=== PATIENT | male | born 1970 | race African-American/Black ===

== ENCOUNTER 2019-09-12 08:36 | Emergency (ER) | payer SELFPAY ==
[~2019-09-12] VITALS: Ht 188 cm; Wt 93.6 kg
[~2019-09-12 08:36] MED LIST: HYDROCODON-ACE1 EAC7 PO; HYDROCODONE-APA1 TAB PO; VOLTAREN100 GM TP; VOLTAREN25 MG PO
[2019-09-12 08:48] VITALS: BP 121/78; Ht 188 cm; Wt 93.6 kg
[2019-09-12] MEDS ORDERED: DOXYCYCLINE HY100 M2 PO (09:37)
[2019-09-12] MEDS ORDERED: VOLTAREN75 MG PO (09:37)
== END 2019-09-12 09:49 | disposition home or self-care (01) ==
LOC: D.ER 08:36
DX: L02.411 Cutaneous abscess of right axilla (principal)